=== PATIENT | male | born 1980 | race Caucasian/White ===

== ENCOUNTER 2023-10-25 14:16 | Emergency (ER) | payer SELFPAY ==
[2023-10-25 16:11] VITALS: BP 164/90; PULSE 75; RESP 18; TEMP 98; BMI 27.2
== END 2023-10-25 15:40 | disposition home or self-care (01) ==
LOC: JERFT 14:16
DX: S81.802A Unspecified open wound, left lower leg, initial encounter (principal); M79.605 Pain in left leg; X58.XXXA Exposure to other specified factors, initial encounter
CPT/HCPCS: 99282-25